=== PATIENT | female | born 1940 | race Caucasian/White ===

== ENCOUNTER 2019-10-19 11:51 | Day surgery (SDC) | payer MEDICARE, OTHER ==
[~2019-10-19 11:51] MED LIST: Lidocaine 1% PF 2 ML SDV INJECT SCH; Pilocarpine 4% Ophth Soln 15 ML Bot EYERT SCH
[2019-10-19] MEDS: Polymyxin B/Trimethoprim 10 ML Bottle EYERT SCH ×3 (12:28→14:13)
[2019-10-19] MEDS: Brimonidine 0.2% Ophth Soln 5 ML Bottle EYERT SCH ×3 (12:32→14:13)
[2019-10-19] MEDS: Phenylephrine 2.5% Ophth Soln 2 ML Bot EYERT SCH ×5 (12:35→13:51)
[2019-10-19] MEDS: Tropicamide 1% Ophth Soln 15 ML Bottle EYERT SCH ×4 (12:38→13:13)
[2019-10-19 12:54] VITALS: PULSE 88
[2019-10-19] MEDS: Tetracaine HCl/PF 0.5% 4 ML Bottle EYERT SCH ×2 (13:19→13:55)
--- NOTE | 2019-10-19 13:27 | PCM.PREANE ---
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11.) Cardiovascular: No Symptoms Gastrointestinal: No Symptoms (GERD) Neurological: No Symptoms (TIA: 10 yrs ago./[place] Other: Reports: Easy Bruising - Physical Assessment NPO Status Date: 10/19/19 NPO Status Time: 03:00 Vital Signs: Last Vital Signs Temp 36.5 C 10/19/19 12:20 Pulse 88 10/19/19 12:20 Resp 16 10/19/19 12:20 BP 90/61 10/19/19 12:20 Pulse Ox 97 10/19/19 12:20 Height: 1.6 m Weight: 81.647 kg ASA Class: 2 Mental Status: Alert & Oriented x3 Airway Class: Mallampati = 2 Dentition: Reports: Normal Dentition, Caries Thyro-Mental Finger Breadths: 3 Mouth Opening Finger Breadths: 3 ROM/Head Extension: Full Lungs: Clear to Auscultation, Normal Respiratory Effort Cardiovascular: Regular Rate, Regular Rhythm, No Murmurs - Allergies Allergies/Adverse Reactions: Allergies Allergy/AdvReac Type Severity Reaction Status Date / Time hydrocodone Allergy Rash Verified 10/18/19 13:03 lactose Allergy Stomach Verified 10/18/19 13:03 Upset Penicillins Allergy Hives Verified 10/18/19 13:03 procaine [From Novocain] Allergy Other Verified 10/18/19 13:03 simvastatin Allergy Muscle Verified 10/18/19 13:03 Aches - Anesthesia Plan Pre-Op Medication Ordered: None - Acknowledgements Anesthesia Type Planned: MAC Pt an Appropriate Candidate for the Planned Anesthesia: Yes Alternatives and Risks of Anesthesia Discussed w Pt/Guardian: Yes Pt/Guardian Understands and Agrees with Anesthesia Plan: Yes PreAnesthesia Questionnaire - HOME MEDS Home Medications: Home Meds Albuterol Sulfate [Albuterol Sulfate HFA] 2 puff IH Q6H PRN 01/07/15 [History] Alendronate Sodium/Vitamin D3 [Fosamax Plus D 70 MG-5,600 IU] 1 each PO Q7D [History] Aspirin [Halfprin] 81 mg PO DAILY 01/07/15 [History] Biotin 5,000 mcg PO DAILY 01/07/15 [History] Bromfenac [Xibrom 0.09% Ophth Soln] 2.5 ml EYEBOTH DAILY 01/07/15 [History] Calcium Carb, Citrate/Vit D3 [Calcium + D3 ER Tablet] 1 each PO DAILY 01/07/15 [ History] Chromium Picolinate 200 mcg PO DAILY 01/07/15 [History] Cinnamon Bark [Cinnamon] 500 mg PO DAILY 01/07/15 [History] Coconut Oil 1,000 mg PO DAILY 01/07/15 [History] Cyanocobalamin (Vitamin B-12) [Vitamin B-12] 1,000 mcg PO DAILY 01/07/15 [ History] Cyclobenzaprine [Flexeril] 5 mg PO Q8HR PRN #10 tab 01/07/15 [Rx] Fish Oil/Borage/Flax/Om3,6,9 1 [[place] 3-6-9 1,200 mg Softgel] 1 cap PO DAILY [History] L.acidoph,Paracasei, B.lactis [Probiotic] 1 each PO BID 01/07/15 [History] Loratadine 10 mg PO DAILY 01/07/15 [History] Magnesium 400 mg PO DAILY 01/07/15 [History] Menthol [Bengay] 85 gm TP TID PRN 01/07/15 [History] Multivitamin with Minerals [Multiple Vitamin] 1 tab PO DAILY 01/07/15 [History] Multivitamins/Min/FA/Lut/Zeax [ICaps MV] 1 each PO BID 01/07/15 [History] Potassium Citrate [Potassium Citrate ER] 10 meq PO DAILY 01/07/15 [History] Resveratrol 100 mg PO DAILY 01/07/15 [History] Turmeric 1 gm MC DAILY 01/07/15 [History] Ubidecarenone [Coenzyme Q10] 2 tab PO DAILY 01/07/15 [History] diphenhydrAMINE [Benadryl] 50 mg PO Q6HR PRN 01/07/15 [History] polyethylene glycoL 3350 [MiraLAX] 17 gm PO DAILY PRN 01/07/15 [History] - CURRENT (IN HOUSE) MEDS Current Meds: Current Medications Brimonidine Tartrate (Alphagan 0.2% Ophth Soln) 0 ml EYERT ASDIRECTED [facility] Stop: 10/19/19 23:00 Last Admin: 10/19/19 13:04 Dose: 1 drop Lidocaine HCl (Xylocaine-Mpf 1%) 1 ml INJECT ASDIRECTED [facility] Stop: 10/19/19 18:00 Phenylephrine HCl (Pedro-Synephrine 2.5% Ophth Soln) 0 ml EYERT ASDIRECTED [facility] Stop: 10/19/19 23:00 Last Admin: 10/19/19 13:07 Dose: 1 drop Pilocarpine HCl (Pilocar 4% Ophth Soln) 0 ml EYERT ASDIRECTED [facility] Stop: 10/19/19 23:00 Polymyxin/Trimethoprim Sulfate (Polytrim Ophth Soln) 0 ml EYERT ASDIRECTED [facility] Stop: 10/19/19 23:00 Last Admin: 10/19/19 13:01 Dose: 1 drop Tetracaine HCl (Tetracaine 0.5% Steri-Unit [place]) 0 ml EYERT ASDIRECTED [facility] Stop: 10/19/19 23:00 Tropicamide (Mydriacyl 1% Ophth Soln) 0 ml EYERT ASDIRECTED [facility] Stop: 10/19/19 23:00 Last Admin: 10/19/19 13:13 Dose: 1 drop
[2019-10-19] MEDS ORDERED: Cefuroxime 10 MG/ML SYRINGE EYERT SCH (13:45)
--- NOTE | 2019-10-19 14:14 | PCM48HPAN ---
Post Anesthesia Note - EVALUATION WITHIN 48HRS OF ANESTHETIC Vital Signs in Normal Range: Yes Patient Participated in Evaluation: Yes Respiratory Function Stable: Yes Airway Patent: Yes Cardiovascular Function Stable: Yes Hydration Status Stable: Yes Pain Control Satisfactory: Yes Nausea and Vomiting Control Satisfactory: Yes Mental Status Recovered: Yes Vital Signs: Last Vital Signs Temp 36.5 C 10/19/19 12:20 Pulse 88 10/19/19 12:20 Resp 16 10/19/19 12:20 BP 90/61 10/19/19 12:20 Pulse Ox 97 10/19/19 12:20
[2019-10-19 14:30] VITALS: BP 147/64
== END 2019-10-19 14:25 | disposition home or self-care (01) ==
LOC: JD.SDS 11:51
PROVIDERS: ATTEND Ophthalmology
DX: T85 Complications of other internal prosthetic devices, implants and grafts (principal); H43.21 Crystalline deposits in vitreous body, right eye; H35.373 Puckering of macula, bilateral; H35.363 Drusen (degenerative) of macula, bilateral; H35.3131 Nonexudative age-related macular degeneration, bilateral, early dry stage; M19.90 Unspecified osteoarthritis, unspecified site; J45.909 Unspecified asthma, uncomplicated; E11.9 Type 2 diabetes mellitus without complications; Y83.1 Surgical operation with implant of artificial internal device as the cause of abnormal reaction of the patient, or of later complication, without mention of misadventure at the time of the procedure; Z96.1 Presence of intraocular lens; Z88.4 Allergy status to anesthetic agent; Z88.8 Allergy status to other drugs, medicaments and biological substances; Z88.0 Allergy status to penicillin; Z91.048 Other nonmedicinal substance allergy status; Z79.899 Other long term (current) drug therapy; Z79.82 Long term (current) use of aspirin
CPT/HCPCS: 66986; J0697; J2001